=== PATIENT | female | born 1975 | race Caucasian/White ===

== ENCOUNTER → 2018-05-05 09:16 | Outpatient (CLI) | payer OTHER, MEDICAID, SELFPAY ==
[2018-05-05 11:10] LABS: BUN Creatinine Ratio 17.1 (6-22); Blood Urea Nitrogen 12 mg/dL (7-17); Carbon Dioxide 26 mmol/L (22-32); Chloride 106 mmol/L (98-107); Estimated Glomerular Filt Rate > 60.0 mL/min (>60); Glucose 74 mg/dL (70-100); HEMOLYSIS < 15 (0-50); Potassium 4.5 mmol/L (3.4-5.1); Sodium 143 mmol/L (137-145)
== END ==
PROVIDERS: PCP Physician Assistant; Visit Provider Physician Assistant
DX: I10 Essential (primary) hypertension (principal)
CPT/HCPCS: 36415; 80048

== ENCOUNTER → 2018-07-24 18:10 | Outpatient (CLI) | payer OTHER, MEDICAID, SELFPAY | PROVIDERS: PCP Physician Assistant; Visit Provider Physician Assistant | DX: N30.01 Acute cystitis with hematuria (principal) | CPT/HCPCS: 87086 ==

== ENCOUNTER → 2018-08-13 11:15 | Outpatient (CLI) | payer OTHER, MEDICAID, SELFPAY | PROVIDERS: PCP Physician Assistant; Visit Provider Physician Assistant | DX: R30.0 Dysuria (principal) | CPT/HCPCS: 87086 ==

== ENCOUNTER → 2020-11-02 15:39 | Outpatient (CLI) | payer OTHER, MEDICAID, SELFPAY ==
[2020-11-02 17:33] LABS: Alanine Aminotransferase 23 IU/L (<35); Albumin 4.3 g/dL (3.5-5.0); Albumin Globulin Ratio 1.3 (1.0-2.8); Alkaline Phosphatase 69 U/L (38-126); Aspartate Aminotransferase 24 IU/L (14-36); BUN Creatinine Ratio 15.2 (6-22); Bilirubin Total 0.3 mg/dL (0.2-1.3); Blood Urea Nitrogen 10 mg/dL (7-17); Calcium 9.2 mg/dL (8.4-10.2); Carbon Dioxide 28 mmol/L (22-32); Chloride 105 mmol/L (98-107); Cholesterol 213 mg/dL (140-199); Estimated Glomerular Filt Rate > 60.0 mL/min (>60); Globulin 3.4 g/dL (1.7-4.1); Glucose 89 mg/dL (70-100); HDL Cholesterol 49 mg/dL (40-60); HEMOLYSIS < 15 (0-50); LDL Cholesterol Calculated 141 mg/dL (<100); Potassium 4.1 mmol/L (3.4-5.1); Sodium 137 mmol/L (137-145); Total Protein 7.7 g/dL (6.3-8.2); Triglycerides 113 mg/dL (35-150)
== END ==
PROVIDERS: PCP Registered Nurse; Referring Provider Registered Nurse; Visit Provider Registered Nurse
DX: E78.5 Hyperlipidemia, unspecified (principal); I10 Essential (primary) hypertension
CPT/HCPCS: 36415; 80053; 80061

== ENCOUNTER → 2020-12-13 17:53 | Outpatient (CLI) | payer OTHER, MEDICAID, SELFPAY ==
--- NOTE | 2020-12-13 17:55 | DI.RAD.S_ITS ---
PROCEDURE: XR LUMBAR SPINE MIN 4V INDICATIONS: lower back pain TECHNIQUE: 3 views of the lumbar spine acquired. COMPARISON: None. FINDINGS: Bones: No fracture levocurvature is noted. Bilateral sacroiliac sclerosis and spurring. Multilevel degenerative endplate sclerosis and spurring. Diffuse facet arthropathy. Mild narrowing of the lumbar disc spaces diffusely. Soft tissues: Overlying bowel gas pattern is normal. No suspicious soft tissue calcifications. Flexion/extension: There is normal range of motion, with preserved normal alignment. IMPRESSION: Mild lumbar spondylosis and facet arthropathy Levocurvature Dictated by: Meliton Peck M.D. on 12/14/2020 at 8:42 Approved by: Meliton Peck M.D. on 12/14/2020 at 8:43
== END ==
PROVIDERS: PCP Registered Nurse; Referring Provider Registered Nurse; Visit Provider Registered Nurse
DX: M54.5 Low back pain (principal); M47.816 Spondylosis without myelopathy or radiculopathy, lumbar region; G89.29 Other chronic pain
CPT/HCPCS: 72100

== ENCOUNTER → 2021-02-15 19:10 | Outpatient (CLI) | payer OTHER, MEDICAID, SELFPAY ==
--- NOTE | 2021-02-15 19:12 | DI.MRI.S_ITS ---
PROCEDURE: MR LUMBAR SPINE WO CON INDICATIONS: lumbar radiculopathy TECHNIQUE: Noncontrast sagittal T1 spin echo and T2 fast echo, sagittal STIR, axial T1 and T2 fast spin echo through the lumbar spine. In cases with scoliosis, additional coronal T2 fast spin echo may be performed. COMPARISON: [facility], CR, XR LUMBAR SPINE MIN 4V, 12/13/2020, 17:57. FINDINGS: Image quality: Excellent. Alignment and Curvature: There is normal bony alignment. Bone Marrow: Marrow is of normal overall signal. No acute vertebral body compression fractures. Spinal Cord: Conus medullaris terminates at the L1 level. Visualized cord demonstrates normal signal and size. Paraspinous Soft Tissues: No paravertebral masses. T12-L1: Normal appearance. L1-L2: Normal appearance. L2-L3: Normal appearance. L3-L4: Normal appearance. L4-L5: Disc has a normal appearance. Mild right and moderate left facet hypertrophy. No central stenosis. No neural foraminal narrowing. No neural compression. L5-S1: Disc has a normal appearance. Moderate bilateral facet hypertrophy. No central stenosis. No neural foraminal narrowing. No neural compression. IMPRESSION: 1. L4-L5 and L5-S1 facet arthropathy. 2. No central stenosis. 3. No neural foraminal narrowing. 4. No neural compression. Dictated by: Anna Matihs MD, PhD on 02/16/2021 at 10:37 Approved by: Anna Mathis MD, PhD on 02/16/2021 at 10:39
== END ==
PROVIDERS: PCP Registered Nurse; Referring Provider Physical Medicine & Rehabilitation; Visit Provider Physical Medicine & Rehabilitation
DX: M47.817 Spondylosis without myelopathy or radiculopathy, lumbosacral region (principal); M51.26 Other intervertebral disc displacement, lumbar region
CPT/HCPCS: 72148

== ENCOUNTER → 2021-04-02 11:09 | Outpatient (CLI) | payer OTHER, MEDICAID, SELFPAY ==
[2021-04-02 17:06] LABS: COVID19 -Nasal RAPID Negative (Negative)
== END ==
PROVIDERS: PCP Family Medicine; Visit Provider Physical Medicine & Rehabilitation
DX: Z20.822 Contact with and (suspected) exposure to COVID-19 (principal)
CPT/HCPCS: 87635; C9803

== ENCOUNTER 2021-04-03 15:28 | Outpatient (CLI) | payer OTHER, MEDICAID, SELFPAY ==
[2021-04-03] VITALS (9 sets, daily range): BP systolic 138–167; BP diastolic 73–94; PULSE 71–85; RESP 14–20; TEMP 36.6; O2SAT 98–100
--- NOTE | 2021-04-03 15:35 | DI.RAD.S_ITS ---
PROCEDURE: PAIN L/S TRANSFORAMINAL INJECT INDICATIONS: SPONDYLOSIS COMPARISON: [facility], CR, XR LUMBAR SPINE MIN 4V, 12/13/2020, 17:57. FINDINGS: Fluoroscopic spot filming was performed to verify placement of a spinal needle at the L5-S1 level, as labeled on the films. Appropriate location of the needle tip was confirmed by injection of iodinated contrast. IMPRESSION: No significant intraprocedural abnormality. Dictated by: Collin Colon M.D. on 04/03/2021 at 16:47 Approved by: Collin Colon M.D. on 04/03/2021 at 16:47
[2021-04-03] MEDS: MIDAZOLAM 5 MG/5 ML VIAL IV (16:07)
[2021-04-03] MEDS: diphenhydrAMINE 50 MG/ML VIAL IV (16:07)
[2021-04-03] MEDS: fentaNYL 100 MCG/2 ML INJ 50 MCG IV (16:07)
[2021-04-03] MEDS: BETAMETHASONE 30 MG/5 ML MDV 6 MG INJ (16:13)
[2021-04-03] MEDS: BUPIVACAINE 0.25% (PF) VIAL 2 ML INJ (16:13)
[2021-04-03] MEDS: IOPAMIDOL 15 ML VIAL 3 ML INJ (16:13)
[2021-04-03] MEDS: DEXAMETHASONE 10 MG/ML VIAL 20 MG INJ (16:13)
--- NOTE | 2021-04-03 16:23 | P.PCN_ITS ---
Date/Time/Diagnoses Date of procedure: 04/03/21 Time of procedure: 16:23 Pre-procedure diagnosis: FORAMINAL STENOSIS WITH LE SYMPTOMS Post-procedure diagnosis: same Procedure Notes Procedure: 1. FLUOROSCOPICALLY GUIDED CONTRAST CONTROLLED TRANSFORAMINAL EPIDURAL STEROID INJECTION - RIGHT L5/S1 TFESI Indications: Meliton is referred by Dr. Bishop for treatment of Foraminal Stenosis with Right LE Symptoms Physician: Steve Blanco Total Fluoroscopy time (seconds): 12 Total sedation minutes: 12 Complications: none Procedure in detail & Post-procedure care: FINDINGS Foraminal Nerve Root Compression secondary to disc disease and facet hypertrophy DESCRIPTION OF PROCEDURE Following review of allergy and review of potential side effects and complications, including, but not necessarily limited to, infection, allergic reaction, local tissue breakdown, stroke, temporary or permanent nerve injury, paralysis, and possible , the patient indicated that the patient understood and agreed to proceed. An informed consent document was signed by the patient, witnessed by a nurse, and placed in the patient's chart. Additionally, other treatment options including medications, modalities, and physical therapy were reviewed with the patient. After review of previous anaesthesic history and IV conscious sedation the patient was deemed safe to proceed with today?s procedure with IV conscious sedation as ASA class II designation. Safety time-out was performed to confirm patient ID, procedure to be performed and site of procedure. IV sedation was accomplished with a combination of 2mg of Versed and 50mcg of Fentanyl was administered by the RN after DO order, titrated to patient comfort during the course of the procedure while the patient remained responsive to all verbal commands. Additionally, 50mg of Benadryl was administered IV due to her know latex allergy. In the prone position following sterile prep and drape of the lumbar region, the right L5/S1 posterior neuroforamen was identified fluoroscopically. The skin was anesthetized via a 25-gauge 1.5-inch needle with 1% lidocaine solution. At this point, a 25-gauge 3.5-inch spinal needle was atraumatically introduced and advanced under fluoroscopic guidance through the posterior right L5/S1 neuroforamen to approximately the anterior aspect of the canal. Depth was confirmed on lateral view. Following negative aspiration, injection of approximately 1.5cc of Isovue 200 under live fluoroscopy in the AP view confirmed excellent flow along the nerve root, into the epidural space without vascular or intrathecal uptake observed Radiological data, including multiple fluoroscopic views of the lumbosacral spine, reveal a spinal needle at the right L5/S1 posterior neuroforamen. Subsequent views show flow of contrast material flowing superiorly and inferiorly along the nerve root confirming epidural flow. Subsequently, a test dose of 1.5 cc of 1% lidocaine solution was administered and patient was observed for two minutes for signs or symptoms of complications, including abdominal pain, shortness of breath, bilateral upper or lower extremity weakness, nausea and vomiting, prior to steroid injection. At this point, a total of 3cc or 20mg of dexamethasone and 6mg of betamethasone was injected without incident. The procedure tolerated the procedure well without signs or symptoms of complications prior to transfer to the recovery area continued monitoring without incident. The patient was then transferred to the recovery area where they were observed for an appropriate time after the injection. The patient reported a VAS score of 7 prior to the procedure and a post- procedure VAS of 0. POST OP INSTRUCTIONS The patient was provided a Pain Log to continue to record their response to the target-specific procedure prior to follow-up visit with their referring physician. Additionally, specific post-injection care instructions and a contact number to our office were provided if concerns arise regarding possible complic ations associated with the procedure are suspected.
--- NOTE | 2021-04-03 16:31 | PC.NURSE ---
Patient is A&O able to communicate needs. Has a history of tongue swelling and chest tightness after her back injections that she had in [place] any years ago, States they think it was from the latex caps on the medication bottles. Dr Blanco is aware. Patient returned back after procedure, denies any tongue swelling and chest discomfort.
== END 2021-04-03 17:04 | disposition home or self-care (01) ==
LOC: RAD 15:34
PROVIDERS: PCP Family Medicine; Referring Provider Physical Medicine & Rehabilitation; Visit Provider Physical Medicine & Rehabilitation
DX: M48.07 Spinal stenosis, lumbosacral region (principal); M51.17 Intervertebral disc disorders with radiculopathy, lumbosacral region
CPT/HCPCS: 64483; 99152; J0702; J1100; J1200; J2250; J3010

== ENCOUNTER 2021-04-05 11:43 | Emergency (ER) | payer OTHER, MEDICAID, SELFPAY ==
[2021-04-05 11:45] VITALS: BP 166/85; PULSE 68; RESP 16; TEMP 37.3; O2SAT 96; BMI 33.2
[2021-04-05 13:10] VITALS: TEMP 36.9
--- NOTE | 2021-04-05 13:10 | ED.BACK ---
HPI - Back Pain/Injury <Dorcas Johnston, CNC SUPERVISOR-BC - Last Filed: 04/05/21 17:50> General Chief Complaint: Back Pain/Injury Stated Complaint: lower back procedure 2 days ago, fever spiking Time Seen by Provider: 04/05/21 12:35 Source: patient Mode of arrival: Ambulatory Limitations: no limitations History of Present Illness HPI Narrative: The patient is a 45-year-old female who presents after having a lumbosacral injection by Dr. Blanco on the . She is a current everyday smoker, with history of prediabetes, chronic back pain, and states that she has had fevers up to 102 at home. She complains of nausea, no vomiting. She complains of headache. She states that sometimes she checked her temperature notes 102 sometimes it is normal. She tried to get with primary care provider but was unable to, so she came to the emergency department today. She denies any dysuria urgency or frequency, but states that she has history of a really bad kidney infection on both sides. She has been using her medications as per Dr. Blanco, which includes tramadol and Valium. She denies any possibility of . She has not taken any acetaminophen or NSAIDs. Chart review illustrate that she had a fluoroscopy guided contrast controlled transforaminal epidural steroid injection- right L5/S1 Related Data Previous Rx's Medication Instructions Recorded loratadine 10 mg tablet 10 mg PO Q DAY #30 tab 08/13/18 triamcinolone acetonide 0.1 % 1 applictn TOP BID PRN #80 gram 08/13/18 topical ointment albuterol sulfate 90 mcg/actuation 2 puff INHALATION Q4-6H PRN 90 11/02/20 aerosol inhaler Days #18 g atorvastatin 20 mg tablet 20 mg PO BEDTIME 30 Days #30 tab 02/13/21 methylprednisolone 4 mg tablets in See Rx Instructions PO PER PKG DIR 03/02/21 a dose pack #21 ea blood-glucose meter #1 ea 03/05/21 lancets 26 gauge #100 ea 03/05/21 methocarbamol 500 mg tablet 500 mg PO HSP PRN #30 tab 03/15/21 tramadol 50 mg tablet 50 mg PO BID PRN 30 Days #60 tab 03/15/21 diazepam 10 mg tablet 10 mg PO .COMPLEX PRN #10 tab 03/21/21 blood sugar diagnostic #100 ea 03/28/21 ondansetron 4 mg PO Q6H PRN #14 tab 04/05/21 Allergies Allergy/AdvReac Type Severity Reaction Status Date / Time latex Allergy Severe CHEST Verified 04/05/21 11:50 TIGHTNESS AND SWOLLEN THROAT Sulfa (Sulfonamide Allergy Severe HIVES, Verified 04/05/21 11:50 Antibiotics) SWELLING, THROAT CLOSES ethinyl estradiol Allergy Intermediate RED ITCHY Verified 04/05/21 11:50 BUMPS ALL OVER BODY norethindrone Allergy Intermediate RED ITCHY Verified 04/05/21 11:50 BUMPS ALL OVER BODY azithromycin AdvReac Severe UPSET Verified 04/05/21 11:50 STOMACH erythromycin base AdvReac Severe VOMITING Verified 04/05/21 11:50 NON-STOP bupropion [BUPROPION] AdvReac Intermediate Dizzy near Verified 04/05/21 11:50 syncopal episode doxycycline [DOXYCYCLINE] AdvReac Mild stomach Verified 04/05/21 11:50 pain/nausea Review of Systems <TARIQ Hodge - Last Filed: 04/05/21 17:50> Review of Systems Narrative: GENERAL: See HPI HEENT: Denies sinus pain, ear pain, sore throat, difficulty swallowing, dizziness. RESPIRATORY: Denies dyspnea, cough, wheezing, hemoptysis, sputum. CARDIOVASCULAR: Denies chest pain, palpitations, orthopnea, edema, GASTROINTESTINAL: Denies nausea, vomiting, abdominal pain, diarrhea, constipation, melena. : Denies dysuria, frequency, incontinence, hematuria, urinary retention. MUSCULOSKELETAL: See HPI SKIN: Denies rash, skin lesions, or other NEUROLOGIC: Denies weakness, headache, numbness, change in speech, confusion, seizures, incoordination. PSYCHIATRIC: No concerning psychosocial issues. 12 point review of systems is negative except for those stated above Patient History <TARIQ Hodge - Last Filed: 04/05/21 17:50> Medical History Asthma Chronic back pain Essential hypertension Facet arthropathy, lumbar Footdrop Herniated nucleus pulposus, lumbar Hyperglycemia Hyperlipidemia (11/03/17) Lumbosacral radiculopathy at L5 Nicotine dependence Surgical History Anesthesia History of removal of cyst Family History Father Cancer Mother Diabetes mellitus Brother Diabetes mellitus Social History Smoking Status: Current every day smoker Tobacco: How many years used: 20 quit status: not considering quitting second hand exposure: Yes alcohol intake: former (Quit 2 years ago) substance use type: does not use Smoking Status: Current every day smoker alcohol intake frequency: holidays/special occasions only Substance Use Type: does not use Exam <PATIENCE Hodge-BC - Last Filed: 04/05/21 17:50> Narrative Exam Narrative: GENERAL: This is a well-nourished, well-developed patient, in mild distress. HEAD: Atraumatic. Normocephalic. No temporal or scalp tenderness. EYES: Pupils equal round and reactive. Extraocular motions intact. No scleral icterus. No injection or drainage. ENT: Nose without bleeding, purulent drainage or septal hematoma. Wearing a mask. Airway patent. NECK: Trachea midline. No JVD or lymphadenopathy. Supple, nontender, no meningeal signs. CARDIOVASCULAR: Regular rate and rhythm RESPIRATORY: Clear to auscultation. Breath sounds equal bilaterally. No wheezes, rales, or rhonchi. No cough. No increased respiratory effort. No accessory muscle use. GASTROINTESTINAL: Abdomen soft, non-tender, nondistended. No hepato-splenomegaly, or palpable masses. No guarding. EXTREMITIES: No clubbing, cyanosis, or edema. No joint tenderness, effusion, or edema noted. BACK: Nontender without deformity or crepitance. No flank tenderness. NEURO: AOx3. SKIN: No rash or erythema. Injection site non visible on lower back, no overlying erythema. Initial Vital Signs Initial Vital Signs: Vital Signs Temperature 99.2 F 04/05/21 11:45 Pulse Rate 68 04/05/21 11:45 Respiratory Rate 16 04/05/21 11:45 Blood Pressure 166/85 H 04/05/21 11:45 Pulse Oximetry 96 04/05/21 11:45 <Germania Jarvis DO - Last Filed: 04/05/21 19:30> Initial Vital Signs Initial Vital Signs: Vital Signs Temperature 99.2 F 04/05/21 11:45 Pulse Rate 68 05/20/21 11:45 Respiratory Rate 16 04/05/21 11:45 Blood Pressure 166/85 H 04/05/21 11:45 Pulse Oximetry 96 04/05/21 11:45 Course <PATIENCE Hodge-BC - Last Filed: 04/05/21 17:50> Orders Ordered: ED Orders 04/05/21 13:03 Complete Blood Count AUTO DIFF Stat Comprehensive Metabolic Panel Stat Lactate (Lactic Acid) Stat Procalcitonin Stat 04/05/21 13:27 Blood Culture Stat 04/05/21 13:35 COVID19 - ADMIT (GUARD SERGEANT swab/PCR) Stat 04/05/21 13:59 MR lumbar spine wo/w con Stat Discontinued Medications Sodium Chloride (Normal Saline 0.9%) 1,000 mls @ 1,000 mls/hr IV BOLUS ONE Stop: 04/05/21 13:48 Last Infusion: 04/05/21 14:09 Dose: 0 mls/hr Documented by: Admin: 04/05/21 13:12 Dose: 1,000 mls/hr Documented by: JAK Ketorolac Tromethamine (Ketorolac 30 Mg/Ml Vial) 30 mg IV NOW ONE Stop: 04/05/21 13:41 Last Admin: 04/05/21 13:45 Dose: 30 mg Documented by: GIDEON Lorazepam (Lorazepam 2 Mg/Ml Inj) 0.5 mg IV NOW ONE Stop: 04/05/21 14:07 Last Admin: 04/05/21 14:41 Dose: 0.5 mg Documented by: GIDEON Ondansetron HCl (Ondansetron 4 Mg/2 Ml Inj) 4 mg IV NOW ONE Stop: 04/05/21 12:50 Last Admin: 04/05/21 13:12 Dose: 4 mg Documented by: JAK Vital Signs Vital signs: Vital Signs - 8 hr 04/05/21 11:45 04/05/21 13:10 04/05/21 16:22 Temperature 99.2 F 98.5 F 98.3 F Pulse Rate 68 64 Respiratory Rate 16 18 Blood Pressure 166/85 H 134/75 Pulse Oximetry 96 98 <Germania Jarvis DO - Last Filed: 04/05/21 19:30> Orders Ordered: ED Orders 04/05/21 13:03 Complete Blood Count AUTO DIFF Stat Comprehensive Metabolic Panel Stat Lactate (Lactic Acid) Stat Procalcitonin Stat 04/05/21 13:27 Blood Culture Stat 04/05/21 13:35 COVID19 - ADMIT (GUARD SERGEANT swab/PCR) Stat 04/05/21 13:59 MR lumbar spine wo/w con Stat Discontinued Medications Sodium Chloride (Normal Saline 0.9%) 1,000 mls @ 1,000 mls/hr IV BOLUS ONE Stop: 04/05/21 13:48 Last Infusion: 04/05/21 14:09 Dose: 0 mls/hr Documented by: Admin: 04/05/21 13:12 Dose: 1,000 mls/hr Documented by: JAK Ketorolac Tromethamine (Ketorolac 30 Mg/Ml Vial) 30 mg IV NOW ONE Stop: 04/05/21 13:41 Last Admin: 04/05/21 13:45 Dose: 30 mg Documented by: GIDEON Lorazepam (Lorazepam 2 Mg/Ml Inj) 0.5 mg IV NOW ONE Stop: 04/05/21 14:07 Last Admin: 04/05/21 14:41 Dose: 0.5 mg Documented by: GIDEON Ondansetron HCl (Ondansetron 4 Mg/2 Ml Inj) 4 mg IV NOW ONE Stop: 04/05/21 12:50 Last Admin: 04/05/21 13:12 Dose: 4 mg Documented by: JAK Vital Signs Vital signs: Vital Signs - 8 hr 04/05/21 11:45 04/05/21 13:10 04/05/21 16:22 Temperature 99.2 F 98.5 F 98.3 F Pulse Rate 68 64 Respiratory Rate 16 18 Blood Pressure 166/85 H 134/75 Pulse Oximetry 96 98 MDM - Back Pain/Injury <PATIENCE Hodge-LEON - Last Filed: 04/05/21 17:50> Lab Data Attestation: I reviewed the patient's lab results. Result diagrams: 04/05/21 13:03 04/05/21 13:03 Labs: Lab Results 04/05/21 04/05/21 04/05/21 Range/Units 13:03 13:03 13:03 WBC 18.9 H (4.5-11.0) X10^3/uL RBC 4.55 (4.0-5.2) X10^6/uL Hgb 14.0 (12.0-16.0) g/dL Hct 42.9 (36-46) % MCV 94.2 (80-100) fL MCH 30.8 (26-34) PG MCHC 32.7 (30-36) % RDW 13.5 (11.6-14.8) % Plt Count 232 (150-400) X10^3/uL Neut % (Auto) 75.1 H (50-75) % Lymph % (Auto) 19.8 L (25-40) % [place] % (Auto) 4.8 (3-14) % Eos % (Auto) 0.1 L (2-4) % Baso % (Auto) 0.2 (0-2) % Neut # (Auto) 35669 H (1750-1717) /uL Lymph # (Auto) 3800 (8540-8293) /uL [place] # (Auto) 900 (0-900) /uL Eos # (Auto) 0 (0-450) /uL Baso # (Auto) 0 (0-100) /uL Sodium 140 (137-145) mmol/L Potassium 4.5 (3.4-5.1) mmol/L Chloride 108 H (98-107) mmol/L Carbon Dioxide 27 (22-32) mmol/L BUN 13 (7-17) mg/dL Creatinine 0.58 (0.52-1.04) mg/dL Estimated GFR > 60.0 (>60) mL/min BUN/Creatinine Ratio 22.4 H (6-22) Glucose 99 (70-100) mg/dL Lactate 1.5 (0.7-2.1) mmol/L Calcium 9.4 (8.4-10.2) mg/dL Total Bilirubin 0.2 (0.2-1.3) mg/dL AST 21 (14-36) IU/L ALT 22 (<35) IU/L Alkaline Phosphatase 67 (38-126) U/L Total Protein 7.2 (6.3-8.2) g/dL Albumin 4.2 (3.5-5.0) g/dL Globulin 3.0 (1.7-4.1) g/dL Albumin/Globulin Ratio 1.4 (1.0-2.8) Procalcitonin < 0.03 (<0.5) ng/mL SARS-CoV-2 (PCR) (Negative) 04/05/21 Range/Units 13:35 WBC (4.5-11.0) X10^3/uL RBC (4.0-5.2) X10^6/uL Hgb (12.0-16.0) g/dL Hct (36-46) % MCV (80-100) fL MCH (26-34) PG MCHC (30-36) % RDW (11.6-14.8) % Plt Count (150-400) X10^3/uL Neut % (Auto) (50-75) % Lymph % (Auto) (25-40) % [place] % (Auto) (3-14) % Eos % (Auto) (2-4) % Baso % (Auto) (0-2) % Neut # (Auto) (8881-6127) /uL Lymph # (Auto) (4254-0440) /uL [place] # (Auto) (0-900) /uL Eos # (Auto) (0-450) /uL Baso # (Auto) (0-100) /uL Sodium (137-145) mmol/L Potassium (3.4-5.1) mmol/L Chloride (98-107) mmol/L Carbon Dioxide (22-32) mmol/L BUN (7-17) mg/dL Creatinine (0.52-1.04) mg/dL Estimated GFR (>60) mL/min BUN/Creatinine Ratio (6-22) Glucose (70-100) mg/dL Lactate (0.7-2.1) mmol/L Calcium (8.4-10.2) mg/dL Total Bilirubin (0.2-1.3) mg/dL AST (14-36) IU/L ALT (<35) IU/L Alkaline Phosphatase (38-126) U/L Total Protein (6.3-8.2) g/dL Albumin (3.5-5.0) g/dL Globulin (1.7-4.1) g/dL Albumin/Globulin Ratio (1.0-2.8) Procalcitonin (<0.5) ng/mL SARS-CoV-2 (PCR) Negative (Negative) Point of Care Testing Test Results Negative Urine Dip Bedside Urine Glucose Negative Bedside Urine Bilirubin - Negative Bedside Urine Ketone - Negative Urine Specific Smyer 1.015 Bedside Urine Occult Blood - Negative Bedside Urine pH 6 Bedside Urine Protein - Negative Bedside Urine Urobilinogen - Negative Bedside Urine Nitrite - Negative Bedside Urine Leukocytes - Negative Esterase Imaging Data MRI lumbar spine: Radiologist's Impression: [address] [place] [id number] Resonance ReportSigned Patient: Meliton Rangel LMR#: [id number]: [id number]:[id number]/Sex: 45 / FDate of Service: 04/05/21Loc: EDAccession Number: [id number] Procedure: MR lumbar spine wo/w con Ordering Provider: Dorcas Johnston PROCEDURE: MR LUMBAR SPINE WO/W CON INDICATIONS: lumbosacral injection, wbc 19, fever TECHNIQUE: Noncontrast sagittal T1 spin echo and T2 fast spin echo, sagittal STIR, axial T1 and T2 fast spin echo through the lumbar spine. In cases with scoliosis, additional coronal T2 fast spin echo may be performed. After the administration of contrast, sagittal and axial T1 spin echo with fat saturation through the lumbar spine. COMPARISON: [facility], , MR LUMBAR SPINE WO CON, 02/15/2021, 19:19. FINDINGS: Image quality: Excellent. Alignment and curvature: There is normal bony alignment. Marrow: Marrow is of normal overall signal. Increased T1 and T2 signal at T12 is noted suggestive of hemangioma. It is unchanged. No acute vertebral body compression fractures. No suspicious marrow enhancement. Spinal cord: Conus medullaris terminates at the L1-L2 level. Visualized spinal cord demonstrates normal signal, without suspicious enhancement. Paraspinous soft tissues: No paravertebral masses or abnormal enhancement. T12-L4: No disc bulge, spinal stenosis or foraminal narrowing. No interval change. L4-L5: No disc bulge or spinal stenosis. No foraminal narrowing. Mild facet and ligamentum flavum hypertrophy. L5-S1: No disc bulge, spinal stenosis or foraminal narrowing. Moderate facet hypertrophy. IMPRESSION: 1. Minimal early degenerative changes, stable compared to prior exam. 2. No areas of abnormal enhancement are identified. Dictated by: Julieta Oneal M.D. on 04/05/2021 at 15:45 Approved by: Julieta Oneal M.D. on 04/05/2021 at 15:50 [facility] Narrative Medical decision making narrative: The patient is a 45-year-old female who presents with a chief complaint of subjective fever, and general malaise after having a injection of steroid at L5, S1. She is afebrile in the emergency department upon multiple checks. She is noted to have leukocytosis to 19, though that could be related to her steroid injection. However given her reported fever, leukocytosis, nausea and headache, did obtain an MRI to evaluate for infectious etiology after discussing with Dr Jarvis. This resulted negative, which is very reassuring. Otherwise the patient has no signs of urinary tract infection, is negative for COVID, does not have any abdominal pain on exam. Discussed patient with Dr Jarvis and patient was discharged home. We discussed at length follow up with primary care provider as well as Dr Blanco. Discussed at length coming back to the ER for acute concerns. Patient feels improved after Zofran and a prescription given. Patient has no questions or concerns upon discharge states understanding of return precautions as well as follow-up care. <Germania Jarvis, DO - Last Filed: 04/05/21 19:30> Lab Data Labs: Lab Results 04/05/21 04/05/21 04/05/21 Range/Units 13:03 13:03 13:03 WBC 18.9 H (4.5-11.0) X10^3/uL RBC 4.55 (4.0-5.2) X10^6/uL Hgb 14.0 (12.0-16.0) g/dL Hct 42.9 (36-46) % MCV 94.2 (80-100) fL MCH 30.8 (26-34) PG MCHC 32.7 (30-36) % RDW 13.5 (11.6-14.8) % Plt Count 232 (150-400) X10^3/uL Neut % (Auto) 75.1 H (50-75) % Lymph % (Auto) 19.8 L (25-40) % [place] % (Auto) 4.8 (3-14) % Eos % (Auto) 0.1 L (2-4) % Baso % (Auto) 0.2 (0-2) % Neut # (Auto) 43750 H (7904-8773) /uL Lymph # (Auto) 3800 (5033-3699) /uL [place] # (Auto) 900 (0-900) /uL Eos # (Auto) 0 (0-450) /uL Baso # (Auto) 0 (0-100) /uL Sodium 140 (137-145) mmol/L Potassium 4.5 (3.4-5.1) mmol/L Chloride 108 H (98-107) mmol/L Carbon Dioxide 27 (22-32) mmol/L BUN 13 (7-17) mg/dL Creatinine 0.58 (0.52-1.04) mg/dL Estimated GFR > 60.0 (>60) mL/min BUN/Creatinine Ratio 22.4 H (6-22) Glucose 99 (70-100) mg/dL Lactate 1.5 (0.7-2.1) mmol/L Calcium 9.4 (8.4-10.2) mg/dL Total Bilirubin 0.2 (0.2-1.3) mg/dL AST 21 (14-36) IU/L ALT 22 (<35) IU/L Alkaline Phosphatase 67 (38-126) U/L Total Protein 7.2 (6.3-8.2) g/dL Albumin 4.2 (3.5-5.0) g/dL Globulin 3.0 (1.7-4.1) g/dL Albumin/Globulin Ratio 1.4 (1.0-2.8) Procalcitonin < 0.03 (<0.5) ng/mL SARS-CoV-2 (PCR) (Negative) 04/05/21 Range/Units 13:35 WBC (4.5-11.0) X10^3/uL RBC (4.0-5.2) X10^6/uL Hgb (12.0-16.0) g/dL Hct (36-46) % MCV (80-100) fL MCH (26-34) PG MCHC (30-36) % RDW (11.6-14.8) % Plt Count (150-400) X10^3/uL Neut % (Auto) (50-75) % Lymph % (Auto) (25-40) % [place] % (Auto) (3-14) % Eos % (Auto) (2-4) % Baso % (Auto) (0-2) % Neut # (Auto) (7036-7317) /uL Lymph # (Auto) (8844-1130) /uL [place] # (Auto) (0-900) /uL Eos # (Auto) (0-450) /uL Baso # (Auto) (0-100) /uL Sodium (137-145) mmol/L Potassium (3.4-5.1) mmol/L Chloride (98-107) mmol/L Carbon Dioxide (22-32) mmol/L BUN (7-17) mg/dL Creatinine (0.52-1.04) mg/dL Estimated GFR (>60) mL/min BUN/Creatinine Ratio (6-22) Glucose (70-100) mg/dL Lactate (0.7-2.1) mmol/L Calcium (8.4-10.2) mg/dL Total Bilirubin (0.2-1.3) mg/dL AST (14-36) IU/L ALT (<35) IU/L Alkaline Phosphatase (38-126) U/L Total Protein (6.3-8.2) g/dL Albumin (3.5-5.0) g/dL Globulin (1.7-4.1) g/dL Albumin/Globulin Ratio (1.0-2.8) Procalcitonin (<0.5) ng/mL SARS-CoV-2 (PCR) Negative (Negative) Point of Care Testing Test Results Negative Urine Dip Bedside Urine Glucose Negative Bedside Urine Bilirubin - Negative Bedside Urine Ketone - Negative Urine Specific Smyer 1.015 Bedside Urine Occult Blood - Negative Bedside Urine pH 6 Bedside Urine Protein - Negative Bedside Urine Urobilinogen - Negative Bedside Urine Nitrite - Negative Bedside Urine Leukocytes - Negative Esterase Discharge Plan Departure Patient Disposition: Home Clinical Impression: Encounter for evaluation of wound, Nausea Leukocytosis Qualifiers: Leukocytosis type: unspecified Qualified Code(s): D72.829 - Elevated white blood cell count, unspecified Instructions: DI for Low Back Pain, DI for Nausea -- Adult, DI for Fever (Symptom) -- Adult Activity Restrictions/Additional Instructions: Thank you for trusting us with your care today. As discussed, your MRI came back with no acute findings, which is very reassuring Please follow-up with primary care provider as well as Dr. Blanco. I did send a prescription of ondansetron to [facility] for nausea. Please be aware this can be constipating. As discussed, please come back to the emergency department with any acute concerns. Prescriptions: New ondansetron 4 mg tablet,disintegrating 4 mg PO Q6H PRN (Reason: nausea and vomiting) Qty: 14 RF: 0 No Action loratadine 10 mg tablet 10 mg PO Q DAY Qty: 30 RF: 12 triamcinolone acetonide 0.1 % ointment 1 applictn TOP BID PRN (Reason: eczema) Qty: 80 RF: 1 atorvastatin 20 mg tablet 20 mg PO BEDTIME 30 Days Qty: 30 RF: 2 (DME) blood-glucose meter [True Metrix Glucose Meter] Misc See Rx Instructions .ROUTE .MEDSUPPLY Qty: 1 RF: 0 (DME) lancets [Lancets,Ultra Thin] 26 gauge misc See Rx Instructions .ROUTE .MEDSUPPLY Qty: 100 RF: 0 methocarbamol 500 mg tablet 500 mg PO HSP PRN (Reason: muscle spasm) Qty: 30 RF: 0 tramadol 50 mg tablet 50 mg PO BID PRN (Reason: lower back pain) 30 Days Qty: 60 RF: 0 diazepam [Valium] 10 mg tablet 10 mg PO .COMPLEX PRN (Reason: sedation) Qty: 10 RF: 0 (DME) True Metrix Glucose Test Strip Strip See Rx Instructions .ROUTE .MEDSUPPLY Qty: 100 RF: 1 albuterol sulfate 90 mcg/actuation HFA aerosol inhaler 2 puff inhalation Q4-6H PRN (Reason: shortness of breath or wheezing) 90 Days Qty: 18 RF: 3 methylprednisolone [Medrol (Rogelio)] 4 mg tablets,dose pack See Rx Instructions PO PER PKG DIR Qty: 21 RF: 0 Referrals: Steve Blanco DO [Physician] - Yoandy Bishop MD [Primary Care Provider] - <Germania Jarvis DO - Last Filed: 04/05/21 19:30> Cosign ED Attending [place] Attestation: I was immediately available in the department for consultation. Documentation has been reviewed. I agree with assessment and plan.
[2021-04-05 13:11] LABS: Add Manual Diff / Slide Review NO; Basophils Absolute Auto 0 /uL (0-100); Basophils Percent Auto 0.2 % (0-2); Eosinophils Absolute Auto 0 /uL (0-450); Eosinophils Percent Auto 0.1 % (2-4); Hematocrit 42.9 % (36-46); Lymphocytes Absolute Auto 3800 /uL (1100-4500); Lymphocytes Percent Auto 19.8 % (25-40); Mean Corpuscular HGB Conc 32.7 % (30-36); Mean Corpuscular Hemoglobin 30.8 PG (26-34); Mean Corpuscular Volume 94.2 fL (80-100); Monocytes Absolute Auto 900 /uL (0-900); Monocytes Percent Auto 4.8 % (3-14); Neutrophils Absolute Auto 14200 /uL (1500-7000); Neutrophils Percent Auto 75.1 % (50-75); Platelet Count 232 X10^3/uL (150-400); Red Blood Cell Count 4.55 X10^6/uL (4.0-5.2); Red Cell Distribution Width 13.5 % (11.6-14.8); White Blood Cell Count 18.9 X10^3/uL (4.5-11.0)
[2021-04-05] MEDS: SODIUM CHLORIDE 0.9% 1,000 ML 1000 ML IV (13:12)
[2021-04-05] MEDS: ONDANSETRON 4 MG/2 ML INJ IV (13:12)
[2021-04-05 13:22] LABS: Alanine Aminotransferase 22 IU/L (<35); Albumin 4.2 g/dL (3.5-5.0); Albumin Globulin Ratio 1.4 (1.0-2.8); Alkaline Phosphatase 67 U/L (38-126); Aspartate Aminotransferase 21 IU/L (14-36); BUN Creatinine Ratio 22.4 (6-22); Bilirubin Total 0.2 mg/dL (0.2-1.3); Blood Urea Nitrogen 13 mg/dL (7-17); Calcium 9.4 mg/dL (8.4-10.2); Carbon Dioxide 27 mmol/L (22-32); Chloride 108 mmol/L (98-107); Estimated Glomerular Filt Rate > 60.0 mL/min (>60); Glucose 99 mg/dL (70-100); HEMOLYSIS < 15 (0-50); Potassium 4.5 mmol/L (3.4-5.1); Sodium 140 mmol/L (137-145); Total Protein 7.2 g/dL (6.3-8.2)
[2021-04-05 13:28] LABS: Lactate (Lactic Acid) 1.5 mmol/L (0.7-2.1)
[2021-04-05 13:39] LABS: Procalcitonin < 0.03 ng/mL (<0.5)
[2021-04-05] MEDS: KETOROLAC 30 MG/ML VIAL IV (13:45)
--- NOTE | 2021-04-05 13:59 | DI.MRI.S_ITS ---
PROCEDURE: MR LUMBAR SPINE WO/W CON INDICATIONS: lumbosacral injection, wbc 19, fever TECHNIQUE: Noncontrast sagittal T1 spin echo and T2 fast spin echo, sagittal STIR, axial T1 and T2 fast spin echo through the lumbar spine. In cases with scoliosis, additional coronal T2 fast spin echo may be performed. After the administration of contrast, sagittal and axial T1 spin echo with fat saturation through the lumbar spine. COMPARISON: [facility], , MR LUMBAR SPINE WO CON, 02/15/2021, 19:19. FINDINGS: Image quality: Excellent. Alignment and curvature: There is normal bony alignment. Marrow: Marrow is of normal overall signal. Increased T1 and T2 signal at T12 is noted suggestive of hemangioma. It is unchanged. No acute vertebral body compression fractures. No suspicious marrow enhancement. Spinal cord: Conus medullaris terminates at the L1-L2 level. Visualized spinal cord demonstrates normal signal, without suspicious enhancement. Paraspinous soft tissues: No paravertebral masses or abnormal enhancement. T12-L4: No disc bulge, spinal stenosis or foraminal narrowing. No interval change. L4-L5: No disc bulge or spinal stenosis. No foraminal narrowing. Mild facet and ligamentum flavum hypertrophy. L5-S1: No disc bulge, spinal stenosis or foraminal narrowing. Moderate facet hypertrophy. IMPRESSION: 1. Minimal early degenerative changes, stable compared to prior exam. 2. No areas of abnormal enhancement are identified. Dictated by: Julieta Oneal M.D. on 04/05/2021 at 15:45 Approved by: Julieta Oneal M.D. on 04/05/2021 at 15:50
[2021-04-05] MEDS: LORazepam 2 MG/ML INJ 0.5 MG IV (14:41)
[2021-04-05 14:59] LABS: COVID19 - ADMIT (NP swab/PCR) Negative (Negative)
[2021-04-05 16:22] VITALS: BP 134/75; PULSE 64; RESP 18; TEMP 36.8; O2SAT 98
== END 2021-04-05 16:55 | disposition home or self-care (01) ==
PROVIDERS: Emergency Provider Nurse Practitioner Family; PCP Family Medicine
DX: M54.5 Low back pain (principal); D72.829 Elevated white blood cell count, unspecified; R51.9 Headache, unspecified; R11.0 Nausea; Z20.822 Contact with and (suspected) exposure to COVID-19
CPT/HCPCS: 36415; 72158; 80053; 81003; 81025; 83605; 84145; 85025; 87040; 87635; 96361; 96374; 96375; 99284; C9803; A9579; J1885; J2060; J2405

== ENCOUNTER → 2021-06-19 09:14 | Outpatient (CLI) | payer OTHER, MEDICAID, SELFPAY ==
[2021-06-19 09:40] LABS: COVID19 -Nasal RAPID Negative (Negative)
== END ==
PROVIDERS: PCP Family Medicine; Visit Provider Physician Assistant
DX: Z20.822 Contact with and (suspected) exposure to COVID-19 (principal)
CPT/HCPCS: 87635

== ENCOUNTER → 2021-07-24 08:48 | Outpatient (CLI) | payer OTHER, MEDICAID, SELFPAY ==
[2021-07-24 11:22] LABS: COVID19 -Nasal RAPID Negative (Negative)
== END ==
PROVIDERS: PCP Family Medicine; Referring Provider Physical Medicine & Rehabilitation; Visit Provider Physical Medicine & Rehabilitation
DX: Z20.822 Contact with and (suspected) exposure to COVID-19 (principal)
CPT/HCPCS: 87635; C9803

== ENCOUNTER 2021-07-26 08:14 | Outpatient (CLI) | payer OTHER, MEDICAID, SELFPAY ==
[2021-07-26] VITALS (8 sets, daily range): BP systolic 136–161; BP diastolic 75–91; PULSE 66–76; RESP 17–23; TEMP 36.3; O2SAT 96–100
--- NOTE | 2021-07-26 08:15 | DI.RAD.S_ITS ---
PROCEDURE: PAIN L/SI FACET INJ/BLK 1STL INDICATIONS: SPONDYLOSIS COMPARISON: [facility], , PAIN L/S TRANSFORAMINAL INJECT, 04/03/2021, 16:10. FINDINGS: Fluoroscopic spot filming was performed to verify placement of spinal needles at the L4, L5, and S1 level(s), as labeled on the films. Appropriate location(s) of the needle tip(s) was confirmed by injection of iodinated contrast. IMPRESSION: Intraprocedural examination within normal limits. Dictated by: Collin Colon M.D. on 07/26/2021 at 10:13 Approved by: Collin Colon M.D. on 07/26/2021 at 10:14
[2021-07-26] MEDS: diphenhydrAMINE 50 MG/ML VIAL IV (09:02)
[2021-07-26] MEDS: MIDAZOLAM 5 MG/5 ML VIAL IV (09:03)
[2021-07-26] MEDS: IOPAMIDOL 15 ML VIAL 3 ML INJ (09:06)
[2021-07-26] MEDS: BUPIVACAINE 0.5% (PF) VIAL 5 ML INJ (09:06)
--- NOTE | 2021-07-26 09:16 | P.PCN_ITS ---
Date/Time/Diagnoses Date of procedure: 07/26/21 Time of procedure: 09:16 Pre-procedure diagnosis: 1. FACET ARTHROPATHY Post-procedure diagnosis: same Procedure Notes Procedure: 1. Right L4, L5 and S1 MB BLOCKS Indications: Meliton is referred by Dr. Bishop for treatment of Right Axial LBP. Physician: Steve Blanco Total Fluoroscopy time (seconds): 7 Total sedation minutes: 9 Complications: none Procedure in detail & Post-procedure care: DESCRIPTION OF PROCEDURE Fluoroscopically guided, contrast-controlled right L4, L5 and S1 medial branch blocks with 0.5cc of 0.5% Marcaine. Following review of allergy and review of potential side effects and complications, including, but not necessarily limited to, infection, allergic reaction, local tissue breakdown, nerve injury, paralysis, stroke and possible d eath, the patient indicated that the patient understood and agreed to proceed. An informed consent document was signed by the patient, witnessed by a nurse, and placed in the patient's chart. After review of previous anaesthesic history and IV conscious sedation the patient was deemed safe to proceed with today?s procedure with IV conscious sedation as ASA class II designation. Safety time-out was performed to confirm patient ID, procedure to be performed and site of procedure. IV sedation was accomplished with a combination of 3mg of Versed was administered by the RN after DO order, titrated to patient comfort during the course of the procedure while the patient remained responsive to all verbal commands. Also with the Meliton's history of severe latex allergy we elected to administer 50mg of benadryl prophylactically due to possible exposure from the caps of the medication vials. In the prone position, following sterile prep and drape of the lumbar region, the right L4, L5 and S1 anatomical location of the medial branch of the dorsal ramus was identified fluoroscopically. Subsequently an anesthetic skin wheal using 1% lidocaine solution was initiated at each of the anatomical spots. Subsequently then a 22-gauge 3.5-inch spinal needle was atraumatically introduced and advanced under fluoroscopic guidance at each of the corresponding sites at the right L4, L5 and S1 MB. After negative aspiration, 0.2 cc of Isovue 200 was injected, confirming placement without vascular or intrathecal uptake. Subsequently then 0.5 cc of 0.5% Marcaine solution was injected at each of the corresponding sites at the right L4, L5 and S1 medial branch locations. The patient tolerated the procedure well without signs or symptoms of complications. The procedure tolerated the procedure well without signs or symptoms of complications prior to transfer to the recovery area continued monitoring without incident. Post-procedure, the patient was monitored initiating provocative activities to measure the amount of relief from block of the facetogenic pain. The patient reported a VAS of 7 prior to the procedure and a post-procedure VAS of 1. It has been a pleasure to assist in the diagnostic and therapeutic care of your patient. POST OP INSTRUCTIONS The patient was provided with a Pain Log to complete over the next several hours and subsequent days prior to the patient's follow up with the ordering physician. If the patient has rn angiography relief to the solution applied, then they may be a candidate for medial branch rhizotomy. The patient is aware, was provided, once again, with a Pain Log and will follow up with the referring physician for review and clinical correlation.
== END 2021-07-26 09:47 | disposition home or self-care (01) ==
LOC: RAD 08:15
PROVIDERS: PCP Family Medicine; Referring Provider Physical Medicine & Rehabilitation; Visit Provider Physical Medicine & Rehabilitation
DX: M47.816 Spondylosis without myelopathy or radiculopathy, lumbar region (principal); M54.5 Low back pain; M47.817 Spondylosis without myelopathy or radiculopathy, lumbosacral region
CPT/HCPCS: 64493; 64494; J1200; J2250; J3010

== ENCOUNTER → 2021-10-02 15:28 | Outpatient (CLI) | payer OTHER, MEDICAID, SELFPAY ==
[2021-10-02 16:25] LABS: COVID19 -Nasal RAPID Negative (Negative)
== END ==
PROVIDERS: PCP Family Medicine; Referring Provider Physical Medicine & Rehabilitation; Visit Provider Physical Medicine & Rehabilitation
DX: Z20.822 Contact with and (suspected) exposure to COVID-19 (principal)
CPT/HCPCS: 87635; C9803

== ENCOUNTER 2021-10-04 09:40 | Outpatient (CLI) | payer OTHER, MEDICAID, SELFPAY ==
[2021-10-04] VITALS (8 sets, daily range): BP systolic 126–186; BP diastolic 70–102; PULSE 66–82; RESP 15–23; TEMP 36.3; O2SAT 98–100
--- NOTE | 2021-10-04 09:42 | DI.RAD.S_ITS ---
PROCEDURE: PAIN L/SI FACET INJ/BLK 1STL INDICATIONS: SPONDYLOSIS COMPARISON: [facility], , PAIN L/SI FACET INJ/BLK 1STL, 07/26/2021, 9:07. FINDINGS: Fluoroscopic spot filming was performed to verify placement of spinal needles on the right at the L4, L5, and S1 level(s), as labeled on the films. Appropriate location(s) of the needle tip(s) was confirmed by injection of iodinated contrast. IMPRESSION: Intraprocedural examination within normal limits. Dictated by: Collin Colon M.D. on 10/04/2021 at 10:59 Approved by: Collin Colon M.D. on 10/04/2021 at 10:59
[2021-10-04] MEDS: MIDAZOLAM 5 MG/5 ML VIAL IV (11:04)
[2021-10-04] MEDS: diphenhydrAMINE 50 MG/ML VIAL (11:04)
[2021-10-04] MEDS: BUPIVACAINE 0.5% (PF) VIAL 5 ML INJ (11:10)
[2021-10-04] MEDS: LIDOCAINE 1% 20 ML 10 ML INJ (11:11)
[2021-10-04] MEDS: IOPAMIDOL 15 ML VIAL 3 ML INJ (11:11)
--- NOTE | 2021-10-04 11:17 | PM.PROC.IR.1 ---
Date/Time/Diagnoses Date of procedure: 10/04/21 Time of procedure: 11:17 Pre-procedure diagnosis: 1. FACET ARTHROPATHY Post-procedure diagnosis: same Procedure Notes Procedure: 1. Right L4, L5 and S1 MB BLOCKS Indications: Meliton is referred by Dr. Bishop for treatment of Right Axial LBP. Physician: Steve Blanco Total Fluoroscopy time (seconds): 7 Total sedation minutes: 9 Complications: none Procedure in detail & Post-procedure care: DESCRIPTION OF PROCEDURE Fluoroscopically guided, contrast-controlled right L4, L5 and S1 medial branch blocks with 0.5cc of 0.5% Marcaine. Following review of allergy and review of potential side effects and complications, including, but not necessarily limited to, infection, allergic reaction, local tissue breakdown, nerve injury, paralysis, stroke and possible , the patient indicated that the patient understood and agreed to proceed. An informed consent document was signed by the patient, witnessed by a nurse, and placed in the patient's chart. After review of previous anaesthesic history and IV conscious sedation the patient was deemed safe to proceed with today?s procedure with IV conscious sedation as ASA class II designation. Safety time-out was performed to confirm patient ID, procedure to be performed and site of procedure. IV sedation was accomplished with a combination of 3mg of Versed was administered by the RN after DO order, titrated to patient comfort during the course of the procedure while the patient remained responsive to all verbal commands In the prone position, following sterile prep and drape of the lumbar region, the right L4, L5 and S1 anatomical location of the medial branch of the dorsal ramus was identified fluoroscopically. Subsequently an anesthetic skin wheal using 1% lidocaine solution was initiated at each of the anatomical spots. Subsequently then a 22-gauge 3.5-inch spinal needle was atraumatically introduced and advanced under fluoroscopic guidance at each of the corresponding sites at the right L4, L5 and S1 MB. After negative aspiration, 0.2 cc of Isovue 200 was injected, confirming placement without vascular or intrathecal uptake. Subsequently then 0.5 cc of 0.5% Marcaine solution was injected at each of the corresponding sites at the right L4, L5 and S1 medial branch locations. The patient tolerated the procedure well without signs or symptoms of complications. The procedure tolerated the procedure well without signs or symptoms of complications prior to transfer to the recovery area continued monitoring without incident. Post-procedure, the patient was monitored initiating provocative activities to measure the amount of relief from block of the facetogenic pain. The patient reported a VAS of 7 prior to the procedure and a post-procedure VAS of 1. It has been a pleasure to assist in the diagnostic and therapeutic care of your patient. POST OP INSTRUCTIONS The patient was provided with a Pain Log to complete over the next several hours and subsequent days prior to the patient's follow up with the ordering physician. 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 The patient is aware, was provided, once again, with a Pain Log and will follow up with the referring physician for review and clinical correlation.
== END 2021-10-04 11:40 | disposition home or self-care (01) ==
LOC: RAD 09:41
PROVIDERS: PCP Family Medicine; Referring Provider Physical Medicine & Rehabilitation; Visit Provider Physical Medicine & Rehabilitation
DX: M47.816 Spondylosis without myelopathy or radiculopathy, lumbar region (principal); M47.817 Spondylosis without myelopathy or radiculopathy, lumbosacral region
CPT/HCPCS: 64493; 64494; J1200; J2250; J3010

== ENCOUNTER 2022-02-05 10:26 | Outpatient (CLI) | payer OTHER, MEDICAID, SELFPAY ==
[2022-02-05] VITALS (9 sets, daily range): BP systolic 126–191; BP diastolic 84–111; PULSE 73–83; RESP 14–20; TEMP 36.3; O2SAT 98–100
--- NOTE | 2022-02-05 10:27 | DI.RAD.S_ITS ---
PROCEDURE: PAIN L/S MED/LAT N RFA INDICATIONS: SPONDYLOSIS COMPARISON: None. FINDINGS: Fluoroscopic spot filming was performed to verify placement of spinal needles at the right L4, L5 and S1 pedicles level(s), as labeled on the films. Appropriate location(s) of the needle tip(s) was confirmed by injection of iodinated contrast. IMPRESSION: Access needles tip localized to the right L4, L5 and S1 pedicles for medial branch rhizotomy. Dictated by: Anna Mathis MD, PhD on 02/05/2022 at 13:40 Approved by: Anna Mathis MD, PhD on 02/05/2022 at 13:41
[2022-02-05 11:54] LABS: COVID19 -Nasal RAPID Negative (Negative)
[2022-02-05] MEDS: diphenhydrAMINE 50 MG/ML VIAL (12:02)
[2022-02-05] MEDS: MIDAZOLAM 2 MG/2 ML VIAL 5 MG IV (12:23)
[2022-02-05] MEDS: BUPIVACAINE 0.5% (PF) VIAL 5 ML INJ (12:26)
[2022-02-05] MEDS: LIDOCAINE 1% 20 ML (12:27)
--- NOTE | 2022-02-05 12:39 | P.PCN_ITS ---
Date/Time/Diagnoses Date of procedure: 02/05/22 Time of procedure: 12:39 Pre-procedure diagnosis: 1. RECALCITRANT FACET ARTHROPATHY Post-procedure diagnosis: same Procedure Notes Procedure: 1. RIGHT L4 AND L5 MEDIAL BRANCH RADIOFREQUENCY NEUROTOMY AND RIGHT S1 DORSAL RAMUS BRANCH RADIOFREQUENCY NEUROTOMY Indications: Meliton is referred by Dr. Bishop for treatment of facet arthropathy. Physician: Steve Blanco Total Fluoroscopy time (seconds): 7 Total sedation minutes: 17 Complications: none Procedure in detail & Post-procedure care: DESCRIPTION OF PROCEDURE Right L4 and L5 medial branch radiofrequency neurotomy and right S1 dorsal ramus branch radiofrequency neurotomy under fluoroscopy with conscious sedation. The patient is well known to this clinic having undergone previous facet injections with good but temporary relief. The patient has experienced appropriate, concordant relief with previous facet and median branch blocks but the patient's pain has been recalcitrant to further conservative measures. Therefore, based upon the patient's relief and persistent symptoms, the patient is considered an appropriate candidate for facet rhizotomy. All of the patient's questions regarding the risks versus benefits of the procedure, including, but not limited to, bleeding, infection, temporary as well as lasting nerve injury, paralysis, stroke, and , as well treatment alternatives were answered to satisfaction. After review of previous anaesthesic history and IV conscious sedation the patient was deemed safe to proceed with today?s procedure with IV conscious sedation as ASA class II designation. Safety time-out was performed to confirm patient ID, procedure to be performed and site of procedure. IV sedation was accomplished with a combination of 3mg of Versed was administered by the RN after DO order, titrated to patient comfort during the course of the procedure while the patient remained responsive to all verbal commands. After obtaining informed consent, denial of pertinent drug allergies, as well as being made aware of the potential risks of bleeding, infection, spinal cord trauma, paralysis, temporary and permanent nerve damage, seizure, stroke, and possible , the patient was brought to the fluoroscopy suite and positioned prone on the fluoroscopy table. The lumbar region was prepped with Betadine and covered with a fenestrated drape in the usual sterile fashion. Appropriate monitors applied including pulse oximeter, pulse, and blood pressure for regular monitoring throughout the procedure. After local infiltration using 1% lidocaine, under fluoroscopic guidance, a 10- cm RF insulated needle with a 10-mm active tip was positioned parallel to the junction of the right sacral ala and the superior articulating process where the S1 dorsal ramus resides. Needle placement was confirmed with sensory stimulation at 50 Hz, with motor stimulation of .5v on the right which produced local stimulation without radicular component. The stimulation was then increased to 2v with, once again, only local multifidus stimulation without radicular component. This was then followed by two discreet lesions performed at 80 degrees Celsius for 90 seconds each. The needle was then removed and the identical procedure was performed along the length of the right L5 medial branch with motor stimulation at .7v on the right. The identical procedure was once again performed along the length of the right L4 medial branch with motor stimulation of .5v on the right. The patient tolerated the procedure well without signs or symptoms of complications prior to transfer to the recovery area continued monitoring without incident. The patient was then transferred to the recovery area where they were observed for an appropriate period of time after the injection. The patient was then transferred to the recovery area where they were observed for an appropriate period of time after the injection. The patient reported a VAS score of 8 prior to the procedure and a post- procedure VAS of 0. POST OP INSTRUCTIONS The patient was provided a Pain Log to continue to record the patient's response to the target-specific procedure prior to the patient's follow-up visit with the referring physician. Additionally, specific post-injection care instructions and a contact number to our office were provided if concerns arise regarding possible complications associated with the procedure are suspected.
== END 2022-02-05 12:56 | disposition home or self-care (01) ==
PROVIDERS: PCP Family Medicine; Referring Provider Physical Medicine & Rehabilitation; Visit Provider Physical Medicine & Rehabilitation
DX: M47.816 Spondylosis without myelopathy or radiculopathy, lumbar region (principal); M47.817 Spondylosis without myelopathy or radiculopathy, lumbosacral region
CPT/HCPCS: 64635; 64636; 87635; 99152; J1200; J2250

== ENCOUNTER → 2022-11-01 10:30 | Outpatient (CLI) | payer OTHER, MEDICAID, SELFPAY ==
--- NOTE | 2022-11-01 | DI.MG.S_ITS ---
BILATERAL DIGITAL SCREENING MAMMOGRAM 3D/2D WITH CAD: 11/01/2022 CLINICAL: Routine screening. Baseline exam. Family history of breast cancer. No prior exams were available for comparison. Both breasts are heterogeneously dense, which may obscure small masses (category c / 51-75% glandular tissue). Current study was also evaluated with a Computer Aided Detection (CAD) system. There is a mass with an indistinct margin in the right breast at 12 o'clock posterior depth. No other significant masses, calcifications, or other findings are seen in either breast. IMPRESSION: INCOMPLETE: NEEDS ADDITIONAL IMAGING EVALUATION The mass in the right breast most likely is an intramammary node and is indeterminate. Additional views with possible ultrasound are recommended. Based on the Tyrer Cuzick model (a risk assessment model) the patient's lifetime risk is 8.9% and her 10 year risk is 1.6%. According to the ACR, ACS, and NCCN guidelines, an annual breast MRI exam along with mammogram is recommended if the patient's lifetime risk is 20% or greater. This exam was interpreted at Station ID: [id number]. NOTE: For mammograms, a report in lay terms will be sent to the patient. Approximately 15% of breast malignancies will not be visualized mammographically. In the management of a palpable breast mass, a negative mammogram must not discourage biopsy of a clinically suspicious lesion. Electronically Signed By: García Warner M.D., jr/ricky:11/01/2022 12:14:05 letter sent: Additional Imaging Needed ACR BI-RADS Category 0: Incomplete 3340F
== END ==
PROVIDERS: PCP Family Medicine; Referring Provider Family Medicine; Visit Provider Family Medicine
DX: Z12.31 Encounter for screening mammogram for malignant neoplasm of breast (principal); Z80.3 Family history of malignant neoplasm of breast
CPT/HCPCS: 77063; 77067

== ENCOUNTER → 2022-11-01 11:16 | Outpatient (CLI) | payer OTHER, MEDICAID, SELFPAY ==
--- NOTE | 2022-11-01 11:30 | DI.RAD.S_ITS ---
PROCEDURE: XR KNEE RT 3V INDICATIONS: right knee pain and chronic ACL TECHNIQUE: 3 views of the knee were acquired. COMPARISON: [facility] [place], CR, KNEE SERIES RT, 01/10/2015, 10:23. FINDINGS: Bones: No fractures or dislocations. No suspicious bony lesions. Moderate medial and patellofemoral compartment narrowing and spurring. Soft tissues: Moderate joint effusion. No suspicious soft tissue calcifications. IMPRESSION: 1. Degenerative changes of the right knee. 2. Moderate knee effusion. Dictated by: Edson Carr M.D. on 11/01/2022 at 14:36 Approved by: Edson Carr M.D. on 11/01/2022 at 14:42
[2022-11-01 11:49] LABS: Add Manual Diff / Slide Review NO; Basophils Absolute Auto 0 /uL (0-100); Basophils Percent Auto 0.6 % (0-2); Eosinophils Absolute Auto 100 /uL (0-450); Eosinophils Percent Auto 1.7 % (2-4); Hematocrit 41.6 % (36-46); Hemoglobin 14.2 g/dL (12.0-16.0); Lymphocytes Absolute Auto 2600 /uL (1100-4500); Lymphocytes Percent Auto 34.3 % (25-40); Mean Corpuscular HGB Conc 34.1 % (30-36); Mean Corpuscular Hemoglobin 31.6 PG (26-34); Mean Corpuscular Volume 92.5 fL (80-100); Monocytes Absolute Auto 400 /uL (0-900); Monocytes Percent Auto 5.1 % (3-14); Neutrophils Absolute Auto 4500 /uL (1500-7000); Neutrophils Percent Auto 58.3 % (50-75); Platelet Count 233 X10^3/uL (150-400); Red Blood Cell Count 4.49 X10^6/uL (4.0-5.2); Red Cell Distribution Width 13.3 % (11.6-14.8); White Blood Cell Count 7.7 X10^3/uL (4.5-11.0)
[2022-11-01 12:29] LABS: Alanine Aminotransferase 22 IU/L (<35); Albumin 4.4 g/dL (3.5-5.0); Albumin Globulin Ratio 1.5 (1.0-2.8); Alkaline Phosphatase 75 U/L (38-126); Aspartate Aminotransferase 20 IU/L (14-36); BUN Creatinine Ratio 19.7 (6-22); Bilirubin Total 0.3 mg/dL (0.2-1.3); Blood Urea Nitrogen 14 mg/dL (7-17); Calcium 9.6 mg/dL (8.4-10.2); Carbon Dioxide 29 mmol/L (22-32); Chloride 104 mmol/L (98-107); Cholesterol 174 mg/dL (140-199); Estimated Glomerular Filt Rate > 60 mL/min (>60); Globulin 2.9 g/dL (1.7-4.1); Glucose 89 mg/dL (70-100); HDL Cholesterol 49 mg/dL (40-60); HEMOLYSIS < 15 (0-50); LDL Cholesterol Calculated 92 mg/dL (<100); Potassium 4.8 mmol/L (3.4-5.1); Sodium 140 mmol/L (137-145); Total Protein 7.3 g/dL (6.3-8.2); Triglycerides 165 mg/dL (35-150)
[2022-11-01 14:46] LABS: Creatinine Urine Random 77.4 mg/dL
[2022-11-01 14:50] LABS: Microalbumin Urine Random 0.7 mg/dL (0-1.6)
== END ==
PROVIDERS: PCP Family Medicine; Referring Provider Family Medicine; Visit Provider Family Medicine
DX: Z80.3 Family history of malignant neoplasm of breast (principal); S83.511A Sprain of anterior cruciate ligament of right knee, initial encounter; M25.561 Pain in right knee; M25.461 Effusion, right knee; M54.17 Radiculopathy, lumbosacral region; M54.41 Lumbago with sciatica, right side; E78.5 Hyperlipidemia, unspecified; F41.9 Anxiety disorder, unspecified; I10 Essential (primary) hypertension; Z12.31 Encounter for screening mammogram for malignant neoplasm of breast; R73.9 Hyperglycemia, unspecified; G89.29 Other chronic pain
CPT/HCPCS: 36415; 73562; 77063; 77067; 80053; 80061; 82043; 82570; 84443; 85025

== ENCOUNTER → 2022-12-19 08:46 | Outpatient (CLI) | payer OTHER, MEDICAID, SELFPAY ==
--- NOTE | 2022-12-19 08:47 | DI.US.S_ITS ---
LIMITED ULTRASOUND OF RIGHT BREAST: 12/19/2022 CLINICAL: Patient returns today to evaluate an asymmetry in the right breast. Comparison is made to exams dated: 11/01/2022 mammogram and 12/19/2022 mammogram - . Color flow ultrasound of the right breast 12 o'clock region was performed. Moore scale images of the real-time examination were reviewed. There is a 0.9 cm x 0.5 cm x 0.4 cm wider than tall oval mass with a circumscribed margin in the right breast at 12 o'clock posterior depth 10 cm from the nipple with the long axis parallel to the skin. This oval mass is mildly hypoechoic with an abrupt boundary and posterior acoustic enhancement. This correlates with mammography findings. Color flow imaging demonstrates that there is no vascularity present. IMPRESSION: BENIGN The 0.9 cm mass in the right breast corresponds to the mammographic finding, most likely is a lymph node given mammographic appearance, and is benign. Return to annual mammogram screening schedule is recommended. Findings and recommendations were conveyed to the patient at time of exam. This exam was interpreted at Station ID: [id number]. Electronically Signed By: Aida baca/:12/19/2022 12:32:10 letter sent: Normal Exam Ultrasound BI-RADS: 2 Benign
--- NOTE | 2022-12-19 08:47 | DI.MG.S_ITS ---
UNILATERAL RIGHT DIGITAL DIAGNOSTIC MAMMOGRAM 3D/2D WITH ADDITIONAL VIEWS: 12/19/2022 CLINICAL: Additional evaluation requested from prior study. Comparison is made to exam dated: 11/01/2022 mammogram - [facility]. There are scattered areas of fibroglandular density in the right breast (category b / 25%-50% glandular tissue). There is a 1 cm oval equal density focal asymmetry with an obscured and circumscribed margin in the right breast at 12 o'clock posterior depth. This is confirmed with additional views. No other significant masses or calcifications are seen in the breast. IMPRESSION: INCOMPLETE: NEEDS ADDITIONAL IMAGING EVALUATION The 1 cm oval equal density focal asymmetry in the right breast most likely is a lymph node but remains indeterminate. An ultrasound is recommended. This was performed immediately following this exam. Based on the Tyrer Cuzick model (a risk assessment model) the patient's lifetime risk is 5.9% and her 10 year risk is 1.1%. According to the ACR, ACS, and NCCN guidelines, an annual breast MRI exam along with mammogram is recommended if the patient's lifetime risk is 20% or greater. This exam was interpreted at Station ID: [id number]. NOTE: For mammograms, a report in lay terms will be sent to the patient. Approximately 15% of breast malignancies will not be visualized mammographically. In the management of a palpable breast mass, a negative mammogram must not discourage biopsy of a clinically suspicious lesion. Electronically Signed By: Aida baca/:12/19/2022 09:12:57 ACR BI-RADS Category 0: Incomplete 3340F
== END ==
PROVIDERS: PCP Family Medicine; Referring Provider Family Medicine; Visit Provider Family Medicine
DX: R92.8 Other abnormal and inconclusive findings on diagnostic imaging of breast (principal); N63.15 Unspecified lump in the right breast, overlapping quadrants
CPT/HCPCS: 76642; 77065; G0279

== ENCOUNTER → 2023-06-06 08:28 | Outpatient (CLI) | payer OTHER, MEDICAID, SELFPAY ==
--- NOTE | 2023-06-06 08:28 | DI.RAD.S_ITS ---
PROCEDURE: XR KNEE LT 3V INDICATIONS: left knee pain and swelling TECHNIQUE: 3 views of the knee were acquired. COMPARISON: [facility], CR, XR KNEE RT 3V, 11/01/2022, 11:34. FINDINGS: Bones: No fractures or dislocations. Moderate tricompartmental osteoarthritis is seen more notably in medial femoral tibial compartment. No suspicious bony lesions. Soft tissues: No joint effusion. No suspicious soft tissue calcifications. IMPRESSION: Moderate tricompartmental osteoarthritis. No fracture or dislocation. No significant joint effusion. Dictated by: Bruno Tovar M.D. on 06/06/2023 at 14:07 Approved by: Bruno Tovar M.D. on 06/06/2023 at 14:10
== END ==
PROVIDERS: PCP Family Medicine; Referring Provider Family Medicine; Visit Provider Family Medicine
DX: M25.562 Pain in left knee (principal); M25.561 Pain in right knee; M17.12 Unilateral primary osteoarthritis, left knee
CPT/HCPCS: 73562

== ENCOUNTER → 2024-09-27 08:42 | Outpatient (CLI) | payer OTHER, MEDICAID, SELFPAY ==
[2024-09-27 09:40] LABS: Add Manual Diff / Slide Review NO; Basophils Absolute Auto 100 /uL (0-100); Basophils Percent Auto 0.6 % (0-2); Eosinophils Absolute Auto 100 /uL (0-450); Eosinophils Percent Auto 1.2 % (2-4); Hematocrit 44.5 % (36-46); Hemoglobin 14.9 g/dL (12.0-16.0); Lymphocytes Absolute Auto 2700 /uL (1100-4500); Lymphocytes Percent Auto 31.1 % (25-40); Mean Corpuscular HGB Conc 33.4 % (30-36); Mean Corpuscular Hemoglobin 31.6 PG (26-34); Mean Corpuscular Volume 94.4 fL (80-100); Monocytes Absolute Auto 500 /uL (0-900); Monocytes Percent Auto 5.2 % (3-14); Neutrophils Absolute Auto 5400 /uL (1500-7000); Neutrophils Percent Auto 61.9 % (50-75); Platelet Count 248 X10^3/uL (150-400); Red Blood Cell Count 4.72 X10^6/uL (4.0-5.2); Red Cell Distribution Width 13.9 % (11.6-14.8); White Blood Cell Count 8.8 X10^3/uL (4.5-11.0)
[2024-09-27 09:49] LABS: Hemoglobin A1C% w Est Avg Glu 5.3 % (4.0-6.0)
[2024-09-27 09:56] LABS: Alanine Aminotransferase 24 IU/L (<35); Albumin 4.4 g/dL (3.5-5.0); Albumin Globulin Ratio 1.5 (1.0-2.8); Alkaline Phosphatase 81 U/L (38-126); Aspartate Aminotransferase 24 IU/L (14-36); BUN Creatinine Ratio 21.1 (6-22); Bilirubin Total 0.4 mg/dL (0.2-1.3); Blood Urea Nitrogen 15 mg/dL (7-17); Calcium 9.7 mg/dL (8.4-10.2); Carbon Dioxide 25 mmol/L (22-32); Chloride 109 mmol/L (98-107); Cholesterol 194 mg/dL (140-199); Estimated Glomerular Filt Rate > 60 mL/min (>60); Globulin 2.9 g/dL (1.7-4.1); Glucose 89 mg/dL (70-100); HDL Cholesterol 59 mg/dL (40-60); HEMOLYSIS < 15 (0-50); LDL Cholesterol Calculated 114 mg/dL (<100); Potassium 5.2 mmol/L (3.4-5.1); Sodium 141 mmol/L (137-145); Total Protein 7.3 g/dL (6.3-8.2); Triglycerides 103 mg/dL (35-150)
[2024-09-28 04:12] LABS: Apolipoprotein B 86 mg/dL (<90)
== END ==
PROVIDERS: PCP Family Medicine; Referring Provider Family Medicine; Visit Provider Family Medicine
DX: M47.816 Spondylosis without myelopathy or radiculopathy, lumbar region (principal); M54.17 Radiculopathy, lumbosacral region; R73.9 Hyperglycemia, unspecified; E78.5 Hyperlipidemia, unspecified; I10 Essential (primary) hypertension; S83.511S Sprain of anterior cruciate ligament of right knee, sequela; M17.0 Bilateral primary osteoarthritis of knee
CPT/HCPCS: 36415; 80053; 80061; 80305; 82172; 83036; 84443; 85025

== ENCOUNTER → 2024-10-18 08:25 | Outpatient (CLI) | payer OTHER, MEDICAID, SELFPAY ==
--- NOTE | 2024-10-18 08:26 | DI.RAD.S_ITS ---
PROCEDURE: XR LUMBAR SPINE MIN 4V INDICATIONS: BACK PAIN TECHNIQUE: 5 views of the lumbar spine were acquired, including bilateral oblique views. COMPARISON: [facility], , XR LUMBAR SPINE MIN 4V, 12/13/2020, 17:57. FINDINGS: Bones: 5 nonrib-bearing vertebrae are present. Slight leftward curvature of the spine. No listhesis. Mild, multilevel disc height loss. Facet arthrosis of L3 through S1. Soft tissues: Overlying bowel gas pattern is normal. No suspicious soft tissue calcifications. Oblique images: No pars defects. IMPRESSION: Mild, multilevel degenerative disc disease and lower lumbar facet arthrosis. Dictated by: Herbert Merritt M.D. on 10/18/2024 at 9:24 Approved by: Herbert Merritt M.D. on 10/18/2024 at 9:25
== END ==
PROVIDERS: PCP Family Medicine; Referring Provider Physical Medicine & Rehabilitation; Visit Provider Physical Medicine & Rehabilitation
DX: M47.27 Other spondylosis with radiculopathy, lumbosacral region (principal); M47.26 Other spondylosis with radiculopathy, lumbar region; M51.16 Intervertebral disc disorders with radiculopathy, lumbar region; M21.371 Foot drop, right foot; M17.0 Bilateral primary osteoarthritis of knee
CPT/HCPCS: 72110; 99214

== ENCOUNTER 2024-12-02 13:28 | Outpatient (CLI) | payer OTHER, SELFPAY ==
[2024-12-02] VITALS (10 sets, daily range): BP systolic 156–188; BP diastolic 79–94; PULSE 76–82; RESP 12–20; TEMP 36.2; O2SAT 97–99
--- NOTE | 2024-12-02 13:29 | DI.RAD.S_ITS ---
PROCEDURE: PAIN L INTERLAMINAR/CAUDAL INJ INDICATIONS: para Right L5/S1 TL ANDREW COMPARISON: None. FINDINGS/IMPRESSION: Fluoroscopic spot filming was performed to verify placement of spinal needles at the L5-S1 level(s), as labeled on the films. Appropriate location(s) of the needle tip(s) was confirmed by injection of iodinated contrast. Dictated by: Julieta Oneal M.D. on 12/02/2024 at 16:45 Approved by: Julieta Oneal M.D. on 12/02/2024 at 16:45
[2024-12-02] MEDS: MIDAZOLAM 2 MG/2 ML VIAL IV (14:47)
[2024-12-02] MEDS: BETAMETHASONE 30 MG/5 ML MDV 12 MG INJ (14:52)
[2024-12-02] MEDS: iopamidoL 15 ML VIAL 3 ML INJ (14:53)
[2024-12-02] MEDS: BUPIVACAINE 0.25% (PF) VIAL 2 ML INJ (14:53)
[2024-12-02] MEDS: DEXAMETHASONE 10 MG/ML VIAL INJ (14:53)
--- NOTE | 2024-12-02 15:07 | P.PCN_ITS ---
Date/Time/Diagnoses Date of procedure: 12/02/24 Time of procedure: 15:08 Pre-procedure diagnosis: 1. HNP WITH RADICULAR FEATURES, 2. MULTILEVEL CENTRAL STENOSIS, Post-procedure diagnosis: same Procedure Notes Procedure: 1. FLUOROSCOPICALLY GUIDED CONTRAST CONTROLLED INTERLAMINAR EPIDURAL STEROID INJECTION - L5/S1 Indications: Meliton is referred by Dr. Bishop for treatment of Bilateral Foraminal Stenosis L>R LE symptoms. Physician: Steve Blanco Total Fluoroscopy time (seconds): 8 Total sedation minutes: 14 Complications: none Procedure in detail & Post-procedure care: FINDINGS Multilevel Central Spinal Stenosis with Nerve Root Compression DESCRIPTION OF PROCEDURE Fluoroscopically guided, contrast-controlled L5/S1 translaminar epidural steroid injection. Following review of allergy and review of potential side effects and complications, including, but not necessarily limited to, infection, allergic reaction, local tissue breakdown, temporary as well as permanent nerve injury, paralysis, stroke and possible , the patient indicated that the patient understood and agreed to proceed. An informed consent document was signed by the patient, witnessed by a nurse, and placed in the patient's chart. Additionally, other treatment options including modalities, medications, and physical therapy were reviewed with the patient. After review of previous anaesthesic history and IV conscious sedation the patient was deemed safe to proceed with today?s procedure with IV conscious sedation as ASA class II designation. Safety time-out was performed to confirm patient ID, procedure to be performed and site of procedure. IV sedation was accomplished with a combination of 2mg of Versed administered by the RN after DO order, titrated to patient comfort during the course of the procedure while the patient remained responsive to all verbal commands. In the prone position, following sterile prep and drape of the lumbar region, the L5/S1 translaminar space was identified fluoroscopically. The skin was anesthetized via a 25-gauge, 1.5-inch needle with 1% lidocaine solution. At this point, a 22-gauge short bevel spinal needle was atraumatically introduced and advanced under fluoroscopic guidance into the region of the L5/S1 translaminar space. Depth was confirmed on lateral view. Radiological data, including multiple fluoroscopic views of the lumbar spine, reveal a spinal needle at the L5/S1 translaminar space. Lateral views then show placement of the needle in the epidural space. Subsequent views show contrast material flowing superiorly and inferiorly in the epidural space. No vascular or intrathecal uptake is observed. At this point, using loss of resistance technique with saline and air, the epidural space was entered. This was confirmed following negative aspiration with injection of approximately 1.5cc of Isovue 200, showing excellent epidural flow without vascular or intrathecal uptake. At this point, 1 cc of 1% lidocain e solution combined with 2cc or 10mg of dexamethasone and 6mg of betamethasone was injected without incident. The patent tolerated the procedure without signs of symptoms of complications prior to transfer to the recovery area for further monitoring. The patient was then transferred to the recovery area where they were observed for an appropriate period of time after the injection. The patient reported a VAS score of 6 prior to the procedure and a post-procedure VAS of 0. POST OP INSTRUCTIONS The patient was provided a Pain Log to continue to record their response to the target-specific procedure prior to follow-up visit with their referring physician. Additionally, specific post-injection care instructions and a contact number to our office were provided if concerns arise regarding possible complications associated with the procedure are suspected.
== END 2024-12-02 15:24 | disposition home or self-care (01) ==
LOC: RAD 13:29
PROVIDERS: PCP Family Medicine; Referring Provider Physical Medicine & Rehabilitation; Visit Provider Physical Medicine & Rehabilitation
DX: M51.17 Intervertebral disc disorders with radiculopathy, lumbosacral region (principal); M48.07 Spinal stenosis, lumbosacral region
CPT/HCPCS: 62323; 99152; J0702; J1100; J2250; J3490

== ENCOUNTER 2025-03-03 09:56 | Outpatient (CLI) | payer BC, OTHER, SELFPAY ==
[2025-03-03] VITALS (8 sets, daily range): BP systolic 135–192; BP diastolic 80–97; PULSE 75–82; RESP 14–16; TEMP 36.6; O2SAT 96–100
[2025-03-03] MEDS: MIDAZOLAM 2 MG/2 ML VIAL IV (11:13)
[2025-03-03] MEDS: BUPIVACAINE 0.25% (PF) VIAL 2 ML INJ (11:19)
[2025-03-03] MEDS: BETAMETHASONE 30 MG/5 ML MDV 12 MG INJ (11:20)
[2025-03-03] MEDS: DEXAMETHASONE 10 MG/ML VIAL INJ (11:20)
[2025-03-03] MEDS: iopamidoL 15 ML VIAL 3 ML INJ (11:20)
--- NOTE | 2025-03-03 11:33 | P.PCN_ITS ---
Date/Time/Diagnoses Date of procedure: 03/03/25 Time of procedure: 11:33 Pre-procedure diagnosis: 1. HNP WITH RADICULAR FEATURES, 2. MULTILEVEL CENTRAL STENOSIS, Post-procedure diagnosis: same Procedure Notes Procedure: 1. FLUOROSCOPICALLY GUIDED CONTRAST CONTROLLED INTERLAMINAR EPIDURAL STEROID INJECTION - L5/S1 Indications: Meliton is referred by Dr. Bishop for treatment of Bilateral Foraminal Stenosis L>R LE symptoms. Physician: Steve Blanco Total Fluoroscopy time (seconds): 6 Total sedation minutes: 13 Complications: none Procedure in detail & Post-procedure care: FINDINGS Multilevel Central Spinal Stenosis with Nerve Root Compression DESCRIPTION OF PROCEDURE Fluoroscopically guided, contrast-controlled L5/S1 translaminar epidural steroid injection. Following review of allergy and review of potential side effects and complications, including, but not necessarily limited to, infection, allergic reaction, local tissue breakdown, temporary as well as permanent nerve injury, paralysis, stroke and possible , the patient indicated that the patient understood and agreed to proceed. An informed consent document was signed by the patient, witnessed by a nurse, and placed in the patient's chart. Additionally, other treatment options including modalities, medications, and physical therapy were reviewed with the patient. After review of previous anaesthesic history and IV conscious sedation the patient was deemed safe to proceed with today?s procedure with IV conscious sedation as ASA class II designation. Safety time-out was performed to confirm patient ID, procedure to be performed and site of procedure. IV sedation was accomplished with a combination of 2mg of Versed administered by the RN after DO order, titrated to patient comfort during the course of the procedure while the patient remained responsive to all verbal commands. In the prone position, following sterile prep and drape of the lumbar region, the L5/S1 translaminar space was identified fluoroscopically. The skin was anesthetized via a 25-gauge, 1.5-inch needle with 1% lidocaine solution. At this point, a 22-gauge short bevel spinal needle was atraumatically introduced and advanced under fluoroscopic guidance into the region of the L5/S1 translaminar space. Depth was confirmed on lateral view. Radiological data, including multiple fluoroscopic views of the lumbar spine, reveal a spinal needle at the L5/S1 translaminar space. Lateral views then show placement of the needle in the epidural space. Subsequent views show contrast material flowing superiorly and inferiorly in the epidural space. No vascular or intrathecal uptake is observed. At this point, using loss of resistance technique with saline and air, the epidural space was entered. This was confirmed following negative aspiration with injection of approximately 1.5cc of Isovue 200, showing excellent epidural flow without vascular or intrathecal uptake. At this point, 1 cc of 1% lidocain e solution combined with 3cc or 10mg of dexamethasone and 12mg of betamethasone was injected without incident. The patent tolerated the procedure without signs of symptoms of complications prior to transfer to the recovery area for further monitoring. The patient was then transferred to the recovery area where they were observed for an appropriate period of time after the injection. The patient reported a VAS score of 7 prior to the procedure and a post-procedure VAS of 0. POST OP INSTRUCTIONS The patient was provided a Pain Log to continue to record their response to the target-specific procedure prior to follow-up visit with their referring physician. Additionally, specific post-injection care instructions and a contact number to our office were provided if concerns arise regarding possible complications associated with the procedure are suspected.
== END 2025-03-03 11:45 | disposition home or self-care (01) ==
PROVIDERS: PCP Family Medicine; Referring Provider Physical Medicine & Rehabilitation; Visit Provider Physical Medicine & Rehabilitation
DX: M51.17 Intervertebral disc disorders with radiculopathy, lumbosacral region (principal); M48.07 Spinal stenosis, lumbosacral region
CPT/HCPCS: 62323; 99152; J0702; J1100; J2250; J3490

== ENCOUNTER → 2025-04-01 09:11 | Outpatient (CLI) | payer OTHER, SELFPAY ==
[2025-04-01 10:10] LABS: Creatinine Urine Random 119.31 mg/dL
[2025-04-01 10:25] LABS: Add Manual Diff / Slide Review NO; Basophils Absolute Auto 0 /uL (0-100); Basophils Percent Auto 0.3 % (0-2); Eosinophils Absolute Auto 100 /uL (0-450); Eosinophils Percent Auto 1.6 % (2-4); Hematocrit 43.6 % (36-46); Hemoglobin 15.1 g/dL (12.0-16.0); Lymphocytes Absolute Auto 2800 /uL (1100-4500); Lymphocytes Percent Auto 35.1 % (25-40); Mean Corpuscular HGB Conc 34.7 % (30-36); Mean Corpuscular Hemoglobin 32.5 PG (26-34); Mean Corpuscular Volume 93.6 fL (80-100); Monocytes Absolute Auto 400 /uL (0-900); Monocytes Percent Auto 5.6 % (3-14); Neutrophils Absolute Auto 4600 /uL (1500-7000); Neutrophils Percent Auto 57.4 % (50-75); Platelet Count 233 X10^3/uL (150-400); Red Blood Cell Count 4.66 X10^6/uL (4.0-5.2)
[2025-04-01 10:27] LABS: Alanine Aminotransferase 29 IU/L (<35); Albumin 4.5 g/dL (3.5-5.0); Albumin Globulin Ratio 1.7 (1.0-2.8); Alkaline Phosphatase 77 U/L (38-126); Aspartate Aminotransferase 26 IU/L (14-36); BUN Creatinine Ratio 16.7 (6-22); Bilirubin Total 0.4 mg/dL (0.2-1.3); Blood Urea Nitrogen 11 mg/dL (7-17); Calcium 9.7 mg/dL (8.4-10.2); Carbon Dioxide 25 mmol/L (22-32); Chloride 107 mmol/L (98-107); Estimated Glomerular Filt Rate > 60 mL/min (>60); Globulin 2.7 g/dL (1.7-4.1); Glucose 99 mg/dL (70-99); HEMOLYSIS < 15 (0-50); Potassium 5.1 mmol/L (3.4-5.1); Sodium 140 mmol/L (137-145); Total Protein 7.2 g/dL (6.3-8.2)
[2025-04-01 10:58] LABS: TSH w/ Reflex to FT4 1.22 uIU/mL (0.47-4.68)
== END ==
PROVIDERS: PCP Family Medicine; Referring Provider Family Medicine; Visit Provider Family Medicine
DX: E78.5 Hyperlipidemia, unspecified (principal); I10 Essential (primary) hypertension; M54.17 Radiculopathy, lumbosacral region; M47.816 Spondylosis without myelopathy or radiculopathy, lumbar region
CPT/HCPCS: 36415; 80053; 82043; 82570; 84443; 85025

== ENCOUNTER → 2025-10-28 08:45 | Outpatient (CLI) | payer BC, MEDICAID, SELFPAY ==
[2025-10-28 09:49] LABS: Add Manual Diff / Slide Review NO; Hematocrit 41.7 % (36-46); Hemoglobin 14.2 g/dL (12.0-16.0); Lymphocytes Absolute Auto 2500 /uL (1100-4500); Mean Corpuscular HGB Conc 33.9 % (30-36); Mean Corpuscular Hemoglobin 31.4 PG (26-34); Mean Corpuscular Volume 92.5 fL (80-100); Platelet Count 243 X10^3/uL (150-400)
[2025-10-28 10:15] LABS: Alanine Aminotransferase 22 IU/L (<35); Albumin 4.4 g/dL (3.5-5.0); Albumin Globulin Ratio 1.6 (1.0-2.8); Alkaline Phosphatase 79 U/L (38-126); Blood Urea Nitrogen 17 mg/dL (7-17); Calcium 9.3 mg/dL (8.4-10.2); Carbon Dioxide 26 mmol/L (22-32); Chloride 109 mmol/L (98-107); Cholesterol 180 mg/dL (140-199); Estimated Glomerular Filt Rate > 60 mL/min (>60); Globulin 2.8 g/dL (1.7-4.1); Glucose 87 mg/dL (70-99); HDL Cholesterol 54 mg/dL (40-60); HEMOLYSIS < 15 (0-50); Potassium 4.7 mmol/L (3.4-5.1); Sodium 143 mmol/L (137-145); Total Protein 7.2 g/dL (6.3-8.2); Triglycerides 166 mg/dL (35-150)
[2025-10-28 10:29] LABS: Hemoglobin A1C% w Est Avg Glu 5.3 % (4.0-6.0)
== END ==
PROVIDERS: PCP Family Medicine; Referring Provider Family Medicine; Visit Provider Family Medicine
DX: M47.816 Spondylosis without myelopathy or radiculopathy, lumbar region (principal); M54.17 Radiculopathy, lumbosacral region; E78.5 Hyperlipidemia, unspecified; I10 Essential (primary) hypertension; M17.0 Bilateral primary osteoarthritis of knee; R73.9 Hyperglycemia, unspecified
CPT/HCPCS: 36415; 80053; 80061; 83036; 85025